=== PATIENT | male | born 1965 | race Caucasian/White ===

== ENCOUNTER 2016-11-26 01:44 | Inpatient (IN) | payer OTHER ==
[~2016-11-26] VITALS: Ht 188 cm; Wt 104.8 kg
[2016-11-26] VITALS (14 sets, daily range): BP systolic 110–151; BP diastolic 65–99; PULSE 66–79; RESP 16–20; O2SAT 98–99
[~2016-11-26 01:44] MED LIST: 0.9% Sodium Chloride 1,000 ML ONE; Atropine 1 mg/10 mL (Code) Syringe ONE; Heparin 1,000 Unit/mL 10 mL Inj ONE; Heparin 1,000 Units/500 mL NS Premix IV ONE; Heparin 5,000 Units/500 mL NS Premix IV ONE; Nitroglycerin 50,000 mcg/250 mL D5W Premix IV ONE; Phenylephrine/NS-PF 100 mCg/mL 5 mL Syringe IVPUSH ONE
[2016-11-26] MEDS ORDERED: fentaNYL-PF 50 mCg/mL 2 mL Inj ONE (02:07)
[2016-11-26 02:50] LABS: BASOPHILS % (AUTO) 0.1 % (0-3); EOSINOPHILS % (AUTO) 1.6 % (0-5); MONOCYTES % (AUTO) 8.3 % (4-12); Mean Corpuscular Hemoglobin 30.7 pg (27.0-35.0); Mean Corpuscular Volume 89.7 fL (81-100); NEUTROPHILS % (AUTO) 67.4 % (40-74); Platelet Count 170 bil/L (150-400)
[2016-11-26 03:07] LABS: INR 0.98 ratio
[2016-11-26 03:28] LABS: TROPONIN T 0.065 ug/L (0.0-0.011)
--- NOTE | 2016-11-26 04:00 | NUR ---
Pt admitted form laborer plumbing. Stent placed to the OM. Pt denies chest pain at this time, only states "achy feeling in chest". HR is sinus rhythm with no ectopy or ST elevations noted. Pt remains flat and has been instructed to not bend right leg or lift head for 4 hrs and is compliant. Right groin site with minimal drainage, covered with opsite. No hematoma palpated or observed. VSS. Pt is a/o x3, moves all extremities, able to make needs known. Call light in reach. Will continue to monitor pt closely.
[2016-11-26] MEDS ORDERED: ATOR20TA PO (04:09)
[2016-11-26] MEDS ORDERED: 0.9% Sodium Chloride 250 ML BOLUS IV PRN (04:45)
[2016-11-26] MEDS ORDERED: 0.9% Sodium Chloride 400 ML (4 HRS) IV ONE (04:45)
[2016-11-26] MEDS ORDERED: Ondansetron 2 mg/mL 2 mL Inj IVPUSH PRN (04:45)
--- NOTE | 2016-11-26 05:36 | CS94 ---
[address] [address] DIAGNOSTIC CARDIAC CATHETERIZATION PATIENT: MAXWELL WALL : 1965 MR#: [id number] ADMIT: 11/26/2016 JOB ID: [id number] PROCEDURE NOTE--CARDIAC CATHETERIZATION LABORATORY: SERVICE DATE: Saturday, November 26, 2016 CLIENT SUCCESS DIRECTOR: Alon Genao MD. PROCEDURES: 1. Coronary angiogram--emergent 2. Percutaneous coronary intervention (PCI): a. Percutaneous coronary intervention of branch of obtuse marginal 1--Mini Vision VMS 2.0 x18 mm; (bare metal stent). CLINICAL DETAILS: This 51-year-old man presents to the cardiac catheterization laboratory for emergent coronary angiogram and anticipated primary PCI for STEMI after he was transferred here when he presented initially at [facility] with several hours of severe retrosternal chest discomfort. ECG showed ST elevation inferiorly--JAIR more in lead 2 then 3 suggested consideration of LCX culprit. He had ongoing moderate chest discomfort. UNDERLYING CORONARY RISK FACTORS: Include cigarette smoking and hyperlipidemia. FAMILY HISTORY: Premature coronary disease. PROCEDURAL DETAILS: I evaluated him in the emergency department. I discussed the findings, impressions and management considerations with him including recommendation to proceed to emergent coronary angiogram for definitive diagnosis and to guide treatment options including medical therapy, anticipated PCI or coronary bypass surgery if needed. We discussed the procedure including possible risks and complications. We discussed bleeding, infection and blood clot, as well as injury to nerve artery, vein or kidney, and also arrhythmia drug reaction, or others. We discussed treatment as needed including surgery pacemaker or transfusion. We discussed more serious complications that can occur including stroke, heart attack, cardiac arrest, and emergency surgery, including transfer for coronary bypass surgery. After discussion and questions he signed informed consent to proceed. He was taken to the catheterization laboratory where he was prepped sterilely and draped. Prior to the procedure he had received aspirin 324 mg chewed and heparin bolus and IV infusion, as well as a loading dose of Plavix 600 mg p.o. at the outside hospital. Conscious sedation was used for the procedure. CORONARY ANGIOGRAM: Arterial access was obtained without difficulty using fluoroscopic localization over the femoral head and modified Seldinger technique to insert a 10 cm 6-Belgian side arm sheath. Catheters were advanced and exchanged over a long 0.035 inch J tip guidewire. The left coronary artery was first engaged using a 6-Belgian JL-4 diagnostic catheter. The right coronary artery was imaged using a 6-Belgian JR-4 catheter. LV not entered. PERCUTANEOUS CORONARY INTERVENTION OF INFERIOR BRANCH OF OBTUSE MARGINAL ONE: The diagnostic images were reviewed. The apparent culprit is a subtotal 99% tubular lesion of a small (2.0 mm) inferior branch of the large 1st OM1 (LOLIS 1 flow). Decision was made to proceed with intervention to revascularize this artery in view of his ongoing chest discomfort and continuing ST elevation. Procedural anticoagulation was obtained with a bolus IV heparin to achieve therapeutic ACT. PREDILATATION: For intervention the left coronary artery was engaged with a 6-Belgian EBU-3.5 guide catheter. The lesion was crossed with a BMW wire--0.014 inches x190 cm---which was placed distally in the small branch. The lesion was pre-dilated with a TREK RX balloon-1.5 x15 mm, inflated to 8 atmospheres. It was further pre-dilated with a TREK balloon 2.0 x15 mm was inflated to 8 atmospheres. NTGIC was used during the procedure as needed. The 2.0 x15 mm balloon was inflated to maximum 14 atmospheres. STENT: The post angioplasty report result showed improvement but was not adequate as a stand alone result and decision was made to treat with a stent despite concern for the small size of the artery. The subtotal occlusion was treated with a Vision stent--2.0 x18 mm--deployed at 10 atmospheres. POSTDILATATION: The stent was post dilated with a noncompliant TREK NC balloon--2.0 x15 mm inflated to 18 atmospheres. Completion angiogram showed an excellent final angiographic result with no residual lesion, LOLIS 3 flow and no evident angiographic complication. Procedure without difficulty. The patient tolerated procedure well, no complications. A side arm sheath angiogram shows adequate access for closure device. Arterial hemostasis was obtained without difficulty using a 6-Belgian Perclose suture. The patient became chest pain free and ST segments normalized. He was transferred from the catheterization laboratory in stable and improved condition to the CCU for ongoing care. I discussed the procedure findings and management considerations with the patient (no family yet present). FINDINGS: LMCA: Intact. The left main coronary artery is short and without obstructive lesions. LAD: Intact. The left anterior descending coronary artery is a moderate to large size transapical artery with one major high diagonal vessel. There is mild to moderate atherosclerotic plaquing without significant angiographic obstructive disease. LCX: Dominant. The left circumflex coronary artery, note culprit subtotal tubular 99% lesion of small inferior branch of OM1 (LOLIS 1 flow). The LCX is a large vessel with a large OM1. A superior branch of OM1 has an 80% focal ostial lesion with LOLIS 3 flow. The continuation circumflex is a large dominant artery with a small PDA and other posterolateral branches from it. RCA: Non dominant. The right coronary artery is a medium sized nondominant artery with mild to moderate atherosclerotic plaquing but no angiographic obstructive lesions. CONCLUSIONS: 1. Percutaneous coronary intervention of inferior branch of obtuse marginal one--Mini Vision, BMS 2.0 x18 mm. 2. Acute coronary syndrome (ACS)--ST elevation myocardial infarction (STEMI); inferior acute inferior myocardial infarction. 3. CAD (coronary artery disease)--single vessel disease of a small inferior branch of obtuse marginal one and also note 80% focal lesion of a small superior branch of obtuse marginal one. RECOMMENDATIONS: 1. ECASA--indefinitely. 2. Plavix--plan one year if well tolerated including ongoing cardiology followup. 3. I discussed with the patient the critical importance of mandatory dual antiplatelet therapy and not to stop Plavix for any reason without immediate cardiology consultation. 4. Echocardiogram. 5. OMT--guideline directed optimal medical therapy for coronary artery disease and for underlying coronary artery disease risk factors including aspirin, Plavix, high intensity statin, beta natalio, consideration of MILENA inhibitor and we discussed the critical importance of cigarette smoking cessation.
--- NOTE | 2016-11-26 06:24 | HP ---
[address] [address] HISTORY AND PHYSICAL PATIENT: MAXWELL WALL : 1965 MR#: [id number] ADMIT: 11/26/2016 JOB ID: [id number] CARDIOLOGY ADMISSION HISTORY AND PHYSICAL--INITIAL CRITICAL CARE EVALUATION (EMERGENCY DEPARTMENT):: DATE OF EVALUATION: Saturday, November 26, 2016 EVALUATING PHYSICIAN: Cardiology--Alon Genao MD. PROBLEMS: Acute coronary syndrome (ACS): Chest pain--severe precordial discomfort for several hours; new onset. STEMI--inferior ST-elevation; ST elevation more in lead 2 then lead 3suggests LCX culprit. CORONARY ARTERY DISEASE RISK FACTORS: 1. Cigarettes--current smoker. 2. No history of treated hypertension. 3. History of treated hyperlipidemia. 4. No history of diabetes. 5. Strong family history of premature coronary disease--"all men in the family by age 50." OTHER PROBLEMS: Obesity. CHIEF COMPLAINT: 1. Chest pain. 2. "STEMI" activation. HISTORY OF PRESENT ILLNESS:: PRESENTATION: I was called by the emergency department for "STEMI activation" regarding this 51-year-old man who was being transferred from the emergency department at [facility] where he had first presented several hours after the onset of chest discomfort. I was in the emergency department to meet him as he arrived by EMS transport. He has had no prior known heart disease. He is generally reasonably physically active in his job in [employer]. He has had no premonitory symptoms of angina prior to developing chest discomfort this evening, which is precordial in the left upper chest with intensity 5 on a scale of 10 (moderate). He describes it as severe chest discomfort however. The chest discomfort is now slightly less after NTG sl. The discomfort radiated to his left arm and was associated with dyspnea but not nausea, diaphoresis or lightheadedness. In the outside emergency department he received ASA 324 mg chewed, heparin bolus and heparin IV infusion, and loading dose of Plavix 600 mg p.o. He has been otherwise clinically stable. CARDIAC HISTORY: Regarding heart failure, he has no history of heart failure or symptoms of heart failure including chronic exertional dyspnea, nocturnal dyspnea or edema. Regarding arrhythmia, there is no history of arrhythmia or current symptoms of arrhythmia, including tachy palpitation, presyncope or syncope. Regarding other possible underlying vascular disease, he has no history of CVA and no current symptoms of TIA. No claudication. Regarding possible dual antiplatelet therapy, he has no current bleeding symptoms; no anticipated surgery, and he indicates he is reliable to take mandatory medicines if needed. MEDICATIONS: Lipitor--no myalgias. ALLERGIES: No known drug allergies. I elicit no history of allergy to medical contrast or to fish, seafood iodine or shellfish. PAST MEDICAL HISTORY:: 1. Obesity. 2. He indicates he is otherwise healthy. He has a primary physician and just had his routine yearly checkup yesterday. REVIEW OF SYSTEMS: I questioned him in the emergent setting regarding a 13 point review of systems, which is unremarkable, noncontributory or negative except as noted including: No constitutional symptoms. No history of thyroid disorder. No history of lung disorder, asthma, wheezing or known COPD in the setting of cigarette smoking. No history of GI disorder including indigestion, hepatitis, ulcer or jaundice. PERSONAL SOCIAL HISTORY:: Cigarettes--currently smokes less than half a pack a day. He has smoked a pack a day for about 16 years, but has no history of COPD. Alcohol--he reports no alcohol currently but alcohol in the past. Work-he works in a [employer]. Family--he is and has two children at home in school. FAMILY HISTORY: He reports family history of premature coronary disease in multiple male family members by the 6th decade. PHYSICAL EXAMINATION: General Appearance: Pleasant well-developed man who is in moderate distress with chest discomfort. Vital signs: Blood pressure 140/77 with heart rate 73, regular and sinus rhythm on telemetry. Respiratory rate 16 and unlabored. SpO2 99% on room air. Afebrile 36.6 degrees. Neurologic and mental status: No overt focal neurologic defect noted. He is alert, oriented, appropriate and conversant. HEENT: PERRL, conjunctivae pink. Sclerae not icteric. Mouth and mucous membranes intact. Neck: Carotid upstroke intact bilaterally without bruit. Jugular venous pressure unremarkable but difficult to assess due to body habitus. No palpable thyromegaly. No palpable cervical lymphadenopathy. Lungs: Clear to auscultation bilaterally examined supine. Cardiac: No chest wall tenderness. Cardiac examination otherwise notable for distant heart sounds, regular rhythm, S4 gallop and there is not a loud murmur heard. Abdomen: Obese but otherwise unremarkable without tenderness, mass, hepatosplenomegaly or bruit of abdominal aortic aneurysm. Extremities: No edema. Pedal pulses intact bilaterally at the posterior tibial. DIAGNOSTIC STUDIES: ELECTROCARDIOGRAM: I reviewed the ECG tracings from the outside hospital and the admission tracing here, which shows sinus rhythm at 70 BPM with 1-[address] elevation in the inferior leads which is somewhat more in lead 2 than in lead 3. The impression is STEMI and suggestive of LCX culprit rather than RCA. Chest x-ray: Not available from outside hospital. LABORATORY RESULTS: Not available prior to the procedure. CBC includes WBC 8300 with hemoglobin 13.4, hematocrit 39.2, normal indices and platelet count 170,000. INR 0.98. Chemistries include a potassium 3.5, BUN 9, creatinine 0.63. Estimated GFR 143 with glucose 151. Cardiac markers include creatinine total 174 with troponin 0.065. ASSESSMENT: I discussed my findings, Impressions and management considerations with the patient (no family present) and with the emergency department staff including: Acute coronary syndrome with inferior ST elevation myocardial infarction. He has known severe chest discomfort consistent with ischemia. ECG confirms acute inferior myocardial infarction. He is clinically stable otherwise but has ongoing chest discomfort. I discussed with him the recommendation to proceed emergently to coronary angiogram and anticipated percutaneous coronary intervention. PLAN: 1. Cardiac catheterization and anticipated PCI-emergent. 2. Admit to CCU. 3. Echocardiogram. 4. OMT--guideline directed optimal medical therapy for coronary disease and for underlying CAD risk factors including we discussed the critical importance of cigarette smoking cessation.
--- NOTE | 2016-11-26 09:18 | DRSVH ---
PROCEDURE: X-RAY CHEST ONE VIEW, PORTABLE ([id number]) INDICATIONS: POST CATH PROCEDURE TECHNIQUE: One view of the chest was acquired. COMPARISON: None. FINDINGS: Surgical changes and devices: None. Lungs and pleura: No pleural effusions or pneumothorax. Lungs are clear. Elevation of the right he midiaphragm. Mediastinum: Mediastinal contours appear normal. Heart size is normal. Bones and chest wall: No suspicious bony lesions. Overlying soft tissues appear unremarkable. IMPRESSION: No acute cardiopulmonary disease. Dictated by: Evert Tomas Jayla Interpreted: Lori Neal MD on 11/26/2016 at 9:17 Transcribed by: STALIN on 11/26/2016 at 9:18 Approved by: Lori Neal M.D. on 11/26/2016 at 15:47
--- NOTE | 2016-11-26 10:53 | NUR ---
Social Work- Brief Note Data: EMR reviewed. Pt is a 51 year old male admitted 11/26/16 for STEMI. Pt is a transfer from [facility]. 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 Pt's Insurance is [employer]. Pt's PCP is through [facility], unlisted provider. Per MD notes pt has established PCP care. Per chart review, pt lives at home with his and children where he remains independent with ADLs. Pt has no DPOA on file. Pt anticipated to discharge home with when medically stable. No anticipated discharge needs. SW will continue to follow as needs arise. 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 Plan: Pt anticipated to discharge home with when medically stable. No anticipated discharge needs. SW will continue to follow as needs arise. JOSELINE Ervin
--- NOTE | 2016-11-26 11:36 | DRSVH ---
[facility] [address] [place] [address] Echocardiogram Report Name: MAXWELL WALL Gato e: 11/26/2016 Height: 74 in Hospital Exam Location: [facility] Weight: 237 lb Gender: Other BSA: 2.3 m2 : 1965 Age: 51 yrs BP: 123/71 mmHg Reason For Study: POST CATH Ordering Physician: Performed By: Osvaldo Vaca Interpretation Summary Normal echo study. Procedure: A two-dimensional transthoracic echocardiogram with color flow and Doppler was performed. The study quality was technically adequate. There is no prior echocardiogram noted for this patient. The patient was in normal sinus rhythm during the exam. Left Ventricle: The left ventricle is normal in size, wall thickness, and systolic function without any focal wall motion abnormalities. The ejection fraction is estimated to be 60-65%. There are no focal wall motion abnormalities. Assessment of diastolic parameters indicates normal left ventricular diastolic function and normal filling pressures. Right Ventricle: The right ventricle is normal in size, thickness and function. Atria: Both atria are normal in size. The interatrial septum is intact with no evidence for an atrial septal defect. Mitral Valve: The mitral valve is normal. There is trace mitral regurgitation. Aortic Valve: The aortic valve is normal in structure and function. No aortic regurgitation is present. Tricuspid Valve: The tricuspid valve is normal. No tricuspid regurgitation. Pulmonic Valve: The pulmonic valve leaflets are thin and pliable; valve motion is normal. There is a trace or physiologic amount of pulmonic regurgitation. Great Vessels: The aortic root is normal size. The dimensions of the ascending aorta are normal. The pulmonary artery is normal size. The IVC is of normal diameter and collapses greater than 50% with a sniff. This suggests a low right atrial pressure of 3 mm Hg. Pericardium/ Pleura There is no pericardial effusion. There is no pleural effusion. MMode/2D Measurements & Calculations LVIDd: 5.2 cm RA long axis LVOT diam: 2.3 cm LVIDs: 3.8 cm LA A2 area: 16.8 cm Ao root diam FS: 26.6 % LA A4 area: 16.3 cm RA area EPSS: 0.19 cm LA length (vol) asc Aorta Diam IVSd: 1.0 cm : 15.6 cm LVPWd: 0.98 cm LA vol: 49.5 ml RA vol Ao Arch Diam (Prox LA vol index : 48.1 ml Trans): 3.0 cm RA : 20.6 mm2 IVC diam: 1.9 cm LV garcia. diameter/BSA LV sys. diameter/BSA TAPSE: 2.1 cm (cm/m^2): 2.2 (cm/m^2): 1.6 Doppler Measurements & Calculations Ao V2 max: 122.2 cm/secMV E max fco MV E/A: 1.2 TR max fco Ao max P.0 mmHg : 92.1 cm/sec Med Peak E' Fco : 220.7 cm/sec Ao mean P.1 mmHg MV A max fco TR max PG LVOT Max Fco : 78.0 cm/sec E/E' med: 11.4 : 19.5 mmHg : 109.8 cm/sec Lat Peak E' Fco PA V2 max : 77.9 cm/sec COURTNEY(I,D): 4.0 cm E/E' lat: 13.0 PA mean PG sev ratio: 0.93 E/e' average : 1.3 mmHg MV dec time: 0.19 sec Ao V2 mean LV V1 max PG PA V2 mean : 83.6 cm/sec : 55.0 cm/sec Ao V2 VTI LV V1 VTI: 21.3 cmPA pr(Accel) : 24.2 mmHg COURTNEY(V,D): 3.8 cm2 COURTNEY indexed to BSA (cm^2/m^2): 1.7 Electronically signed by: Lashae Leon on Reading Physician:11/26/2016 11:35 AM
[2016-11-26] MEDS ORDERED: Potassium Chloride 20 mEq/15 mL 15mL Oral Soln PO ONE (12:45)
[2016-11-26] MEDS ORDERED: Potassium Chloride 20 mEq SR Tablet PO ONE (12:45)
--- NOTE | 2016-11-26 13:25 | NUR ---
Reports fleeting mid sternal pressure at times but denies persistent pain or anginal s/s. Sinus rhythm with few PVC's, singles and salvos this morning. Ectopy appears to have stopped at this time. Right groin site stable, distal pulses intact. Ambulates to bathroom and hillman without difficulty, no return of chest pain with activity. Serum K 3.5 this morning, PO replacement given with follow up labs ordered for 1600. Angioplasty and stent booklet given. Smoking cessation encouraged.
[2016-11-26 17:17] LABS: TROPONIN T 1.44 ug/L (0.0-0.011)
--- NOTE | 2016-11-26 18:57 | NUR ---
Care notes provided for following subjects: Plavix, metoprolol, heart healthy diet and smoking cessation.
[2016-11-27] VITALS (9 sets, daily range): BP systolic 121–139; BP diastolic 68–90; PULSE 69–96; RESP 12–18; O2SAT 97–99
[2016-11-27 03:27] LABS: Mean Corpuscular Hemoglobin 30.5 pg (27.0-35.0)
[2016-11-27 04:18] LABS: TROPONIN T 0.757 ug/L (0.0-0.011)
--- NOTE | 2016-11-27 07:20 | NUR ---
Cardiac Pt denies CP. Pt up walking on hallway and tolerated activities well. Right groin site without apparent complications. VSS. No overt complications noted.
--- NOTE | 2016-11-27 11:59 | NUR ---
Social Work- Readiness for Discharge Data: EMR reviewed. Pt is on day 1 of hospitalization for STEMI. Pt is independent at base. Pt is not medically stable, anticipate discharge later today. Pt anticipated to discharge home with when medically stable. No anticipated discharge needs. SW will continue to follow as needs arise. 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 Plan: Pt anticipated to discharge home with when medically stable. No anticipated discharge needs. SW will continue to follow as needs arise. Candice Patel COOKING INSTRUCTOR
--- NOTE | 2016-11-27 18:39 | NUR ---
Shift note Pt reports feeling much better today, VSS on RA and ambulating the halls without issue, groin site stable, burglar alarm installer updated.
--- NOTE | 2016-11-28 02:27 | NUR ---
tele pt a/o times three, coop, lillian, up amb in hallway with steady gait, independent with ADL's, tele- sr hr 80's, bp stable, afebrile, denies cp right groin post cath site cdi, no bleeding, no hematoma, pedal pulses present, ls=clear/decreased, ra sats upper 90's, denies sob, denies n/v denies pain, see assessment charting, plan: pt states he is being discharged in am after todays conversation with cardiology,
[2016-11-28 03:46] VITALS: BP 113/74; PULSE 78; RESP 20; O2SAT 96
[2016-11-28 04:00] VITALS: PULSE 78
--- NOTE | 2016-11-28 04:32 | PROG NOTE ---
[address] [address] PROGRESS NOTE PATIENT: MAXWELL WALL : 1965 MR#: [id number] ADMIT: 11/26/2016 JOB ID: [id number] CARDIAC PROGRESS NOTE--FOLLOWUP INPATIENT VISIT DATE: 11/27/2016 EVALUATING PHYSICIAN: Cardiology--Alon Genao MD PROBLEMS: 1. Acute coronary syndrome inferior STEMI and primary PCI of inferior branch of OM-1: (hospital day 2). 2. I saw the patient on Cardiology rounds today, Tuesday, November 27, 2016 in the PCC unit in followup to his admission now 36 hours ago with chest pain and acute inferior ST elevation leading to primary PCI of a small 2.0 mm branch of an OM. HOSPITAL COURSE AND INTERIM PROGRESS: I reviewed his progress since yesterday with him and examined him. He has done very well and as expected he has begun reambulating, and I observed him walking well several turns around the posada without symptoms. His leg is not bothering him. On examination it is fully intact without ecchymosis hematoma pulsatile mass bruit and with intact distal perfusion. His echocardiogram was accomplished and was read as normal. On close review knowing the coronary anatomy there may be a subtle inferolateral wall motion defect, but overall the picture is consistent with a lesser amount of myocardial damage consistent with the small size of the artery. "Post SD" teaching: I talked with him at length and discussed with him regarding his course and expected progress and recommendations after the infarct. We discussed anticipated discharge tomorrow after he is fully reambulated. We discussed medical regimen including aspirin, mandatory Plavix, statin, and beta-natalio and consideration of MILENA inhibitor. We discussed the critical importance of cigarette cessation smoking, and I offered him nicotine patch and smoking cessation classes which he did not want to move ahead with immediately. We discussed post catheterization not to lift more than 10 pounds for a week. We discussed an "activity prescription" to include progressive return to normal activities with moderate stepwise symptom limited activities. I strongly emphasized a rehab class. He is interested and thinks he has it available on the [employer] where he works. We discuss close followup with primary physician in 3-5 days; and with Cardiology in 7-10 days. ASSESSMENT: Clinically stable and excellent progress to date after acute inferior SD. PLAN: 1. Anticipate discharge in the a.m. 2. OMT--continue guideline directed optimal medical therapy; and consider to up titrate the beta natalio.
[2016-11-28 06:05] VITALS: PULSE 73
[2016-11-28 07:24] VITALS: BP 116/68; PULSE 74; RESP 16; O2SAT 97
--- NOTE | 2016-11-28 10:31 | PCM.DIMED ---
Discharge Instructions Date of Service Nov 28, 2016 Dates of Hospitalization Nov 26, 2016 at 01:51 Discharge Diagnosis Discharge Diagnosis ST elevation DE, s/p baremetal stent placement to inferior branch of obtuse marginal Medication Instructions Please take all medications as prescribed. Please make sure that you take Plavix (Clopidogrel) every day at least one year. You will need to take Aspirin 81 mg one tablet daily indefinitely. I will increased the dose of your Atorvastatin to 80 mg one tablet in the evening. I also started you on Metoprolol 25 mg one tablet twice a day. I gave you prescriptions. Please get medications today from pharmacy. Please do BMP and CBC in one week. Diet Low fat, Low Sodium, Heart Healthy Activity Other (Please see below) Call your provider Shortness of breath, Bleeding, Chest pain Patient Instructions No car driving for couple of days; you can take shower starting from today; do not soak in bath tub for one week; no heavy lifting, no more than 7-10 lb for one week; otherwise be physically active as tolerated. Follow-up Provider: Lashae Clemons MD Follow-up with PCP in: 6 weeks Provider: Hunter Alvarado PA-C Mid-level Provider (F9): Hunter Alvarado PA-C Follow-up with Mid-level in: 2 weeks Hunter Alvarado PA-C Nov 28, 2016 10:31
[2016-11-28 10:38] VITALS: PULSE 81
[2016-11-28] MEDS ORDERED: CLOP75TA28 PO (10:41)
[2016-11-28] MEDS ORDERED: METO25TA6 PO (10:41)
[2016-11-28] MEDS ORDERED: ASPI81TA3 PO (10:41)
[2016-11-28] MEDS ORDERED: ATOR80TA PO (10:41)
--- NOTE | 2016-11-28 10:54 | PCM.DC.MED ---
Discharge Summary Date of Service Nov 28, 2016 Dates of Hospitalization Date of Hospital Admission Nov 26, 2016 at 01:51 Date of Discharge: Nov 28, 2016 Providers: Admitting Physician: Alon Genao MD Primary Care Physician: Gera Ríos Attending Physician: Alon Genao MD Diagnosis at Time of Discharge Diagnosis at Time of Discharge CAD, ACS/ inferior STEMI, s/p BMS placement to inferior branch of obtuse marginal (11/26/2016), Hyperlipidemia Brief History This is a very pleasant 51 y/o gentleman with hx of hyperlipidemia, tobacco smoker, and no prior hx of CAD who on 11/26/2016 was admitted to [facility] with ACS/ inferior STEMI and underwent emergency coronary angiography and had BMS placement to inferior branch of obtuse marginal. He has nonobstructive CAD in other arteries. Had ECHO done on 11/26/2016 which showed LV EF 60-65%, no WMA, had normal left ventricular diastolic function and normal filling pressures, no significant valvular abnormalities, had normal central venous pressures. Hospital Course The patient tolerated procedure well. He is physically active, walking in the [place]. Denies having any chest discomfort or THOMAS, does not have signs nocturnal pulmonary congestion. Right groin area (cardiac cath access) is slightly tender with palpation, has very small hematoma, no bleeding, no bruits with auscultation. He ambulates freely. I advised the patient to quit tobacco smoking. He states that he decided to quit smoking. On telemetry: sinus rhythm with HR between 60s-90s bpm, no dysrhythmia; I uptitrated his Metoprolol tartrate from 12.5 mg BID to 25 mg BID. I explained to the patient that he needs to take Plavix every day for sure one month and preferably one year per case managers Dr. Best recommendation. Medications on discharge are below. Exam Vital Signs (Last) Date Time Temp Pulse Resp B/P Pulse Ox O2 Delivery O2 Flow Rate FiO2 11/28/16 10:38 81 11/28/16 07:24 36.6 16 116/68 97 Room Air Exam General: no ACD ENT: mucous membranes moist, eyes unicteric Neck: supple, no thyromegaly Pulmo: normal breathing sounds bilaterally, no crackles, no wheezing Cardio: RRR, normal S1&S2, no murmur appreciated Abdomen: nontender with palpation Extremities: no LE edema, peripheral pulses preserved Neuro: A&O x3, no gross abnormalities. Test 11/26/16 02:40 11/27/16 03:20 11/28/16 05:20 Neutrophils (%) (Auto) 67.4% (40-74) Lymphocytes (%) (Auto) 22.5% (14-46) Monocytes (%) (Auto) 8.3% (4-12) Eosinophils (%) (Auto) 1.6% (0-5) Basophils (%) (Auto) 0.1% (0-3) Prothrombin Time 10.5sec (8.1-12.5) Prothromb Time International Ratio 0.98ratio White Blood Count 8.0th/mm3 (3.8-10.1) Red Blood Count 4.65mil/mm3 (4.40-5.80) Hemoglobin 14.2g/dL (13.8-17.2) Hematocrit 42.3% (41.0-50.0) Mean Corpuscular Volume 91.0fL (81-100) Mean Corpuscular Hemoglobin 30.5pg (27.0-35.0) Mean Corpuscular Hemoglobin Concent 33.6% (32.0-37.0) Red Cell Distribution Width 12.4% (12.3-15.4) Platelet Count 165bil/L (150-400) Total Creatine Kinase 444U/L (21-232) Creatine Kinase MB 28.1ng/mL (0.0-10.4) Creatine Kinase MB % 6.3% (0.0-5.0) Troponin T 0.757ug/L (0.0-0.011) Triglycerides Level 251mg/dL (0-149) Cholesterol Level 174mg/dL (100-199) LDL Cholesterol, Calculated 95.800mg/dL (0-99) VLDL Cholesterol 50.200mg/dL HDL Cholesterol 28mg/dL (>39) Cholesterol/HDL Ratio 6.21 (0.0-4.4) Sodium Level 137mEq/L (134-144) Potassium Level 4.3mEq/L (3.5-5.2) Chloride Level 99mEq/L (97-108) Carbon Dioxide Level 22mmol/L (18-29) Blood Urea Nitrogen 12mg/dL (6-24) Creatinine 0.64mg/dL (0.76-1.27) Estimat Glomerular Filtration Rate 141mL/min (>59) Glucose Level 114mg/dL (60-99) Calcium Level 9.3mg/dL (8.5-10.1) Discharge Medications Discharge Medications Aspirin Chew (Aspirin Chew) 81 Mg Chew 81 MG PO DAILY Prescribed by: WILDER ANNA Atorvastatin (Lipitor) 80 Mg Tablet 80 MG PO DAILY Prescribed by: WILDER ANNA Clopidogrel (Clopidogrel) 75 Mg Tablet 75 MG PO DAILY Prescribed by: WILDER ANNA Metoprolol Tartrate (Metoprolol Tartrate) 25 Mg Tablet 25 MG PO BID Prescribed by: WILDER ANNA Additional med instructions Please take all medications as prescribed. Please make sure that you take Plavix (Clopidogrel) every day at least one year. You will need to take Aspirin 81 mg one tablet daily indefinitely. I will increased the dose of your Atorvastatin to 80 mg one tablet in the evening. I also started you on Metoprolol 25 mg one tablet twice a day. I gave you prescriptions. Please get medications today from pharmacy. Please do BMP and CBC in one week. Followup Plan Discharge Diet: Low fat, Low Sodium, Heart Healthy Discharge Activity: Other (Please see below) Patient Instructions No car driving for couple of days; you can take shower starting from today; do not soak in bath tub for one week; no heavy lifting, no more than 7-10 lb for one week; otherwise be physically active as tolerated. Follow-up Provider: Lashae Clemons MD Follow-up with PCP in: 6 weeks Provider: Hunter Alvarado PA-C Mid-level Provider: Hunter Alvarado PA-C Follow-up with Mid-level in: 2 weeks Hunter Alvarado PA-C Nov 28, 2016 10:54
--- NOTE | 2016-11-28 11:55 | NUR ---
Discharge Pt just discharged to home with family. Pt had already received discharge educational materials on new prescriptions and angioplasty/stent booklet. Pt given additional materials on discharge home care after stent placement and on atorvastatin as dosage was increased. Pt's IV access D/C'd and intact X2. Pt instructed to call [facility] office in the am to schedule a f/u appointment, number provided. Pt instructed to have labs drawn in 1 week, script supplied. Pt verbalized understanding of all discharge instructions. All belongings accompanied Pt at time of discharge.
== END 2016-11-28 11:53 | disposition home or self-care (01) | DRG 249 ==
LOC: SED 01:44 → CCU 01:51 → PCC 12:00
PROVIDERS: ADMIT Internal Medicine Cardiovascular Disease; ATTEND Internal Medicine Cardiovascular Disease
PROC: 02703DZ Dilation of Coronary Artery, One Artery with Intraluminal Device, Percutaneous Approach (ICD-10-PCS; principal; 2016-11-26)
PROC: B211YZZ Fluoroscopy of Multiple Coronary Arteries using Other Contrast (ICD-10-PCS; 2016-11-26)
PROC: 4A023N7 Measurement of Cardiac Sampling and Pressure, Left Heart, Percutaneous Approach (ICD-10-PCS; 2016-11-26)
DX: I21.19 ST elevation (STEMI) myocardial infarction involving other coronary artery of inferior wall (principal); F17.210 Nicotine dependence, cigarettes, uncomplicated; I25.10 Atherosclerotic heart disease of native coronary artery without angina pectoris; E78.5 Hyperlipidemia, unspecified